=== PATIENT | female | born 1950 | race Caucasian/White ===

== ENCOUNTER 2020-04-07 23:22 | Emergency (ER) | payer OTHER, MEDICAID ==
[~2020-04-07] VITALS: Ht 167.6 cm; Wt 73.0 kg
[2020-04-07 23:38] VITALS: Ht 167.6 cm; Wt 73.0 kg
[2020-04-08 00:47] LABS: CALCIUM 9.3 mg/dL (8.5-10.1); CARBON DIOXIDE 27.6 mmol/L (21-32); CHLORIDE SERUM 97 mmol/L (98-107); CREATININE SERUM 0.8 mg/dL (0.6-1.0); GFR1 > 60 mL/min; GLUCOSE SERUM 391 mg/dL (74-106); POTASSIUM SERUM 3.2 mmol/L (3.5-5.1); SODIUM SERUM 134 mmol/L (136-145)
[2020-04-08 01:55] VITALS: BP 116/65
== END 2020-04-08 01:55 | disposition home or self-care (01) ==
LOC: ED 23:22
PROVIDERS: Emergency Medicine
DX: E11.649 Type 2 diabetes mellitus with hypoglycemia without coma (principal)
CPT/HCPCS: 82962; J3490